=== PATIENT | male | born 1990 | race Caucasian/White ===

== ENCOUNTER 2017-05-18 15:55 | Emergency (ER) | payer SELFPAY ==
[2017-05-18 16:22] VITALS: BP 142/93; PULSE 81; RESP 18; TEMP 98.2; O2SAT 98
--- NOTE | 2017-05-18 16:39 | EDPHY ---
H & P Time Seen by Provider: 05/18/17 16:28 HPI/ROS: CHIEF COMPLAINT: Dental pain HISTORY OF PRESENT ILLNESS: 26-year-old male presents to the emergency department with dental pain. The patient has had several days of left upper tooth pain. He states that it has become increasingly more painful. No facial swelling. No reported trauma. He thinks that it is the wisdom tooth. He thinks that this also broke off a long time ago. He is new to [place] and does not have a dentist. ROS: Denies facial swelling, fever, chills, dysphagia Past Medical/Surgical History: Negative Social History: New to [place] from [place], [place] Smoking Status: Heavy smoker Physical Exam: On exam the patient has poor dentition. He has fractured the upper left wisdom tooth. There is no surrounding gum swelling or signs of infection. No facial bone tenderness. Neck is supple without lymphadenopathy. Neck is supple. Constitutional: Initial Vital Signs Temperature (C) 36.8 C 05/18/17 16:19 Heart Rate 81 05/18/17 16:19 Respiratory Rate 18 05/18/17 16:19 Blood Pressure 142/93 H 05/18/17 16:19 O2 Sat (%) 98 05/18/17 16:19 O2 Delivery Mode Room Air Allergies/Adverse Reactions: morphine Allergy (Intermediate, Verified 05/18/17 16:22) Hives Home Medications: Medication Instructions Recorded Penicillin V Potassium 500 mg PO TID #30 tablet 05/18/17 MDM/Departure - MDM ED Course/Re-evaluation: 26-year-old male with dental pain. I explained to the patient that narcotic medication would not be given to him. He will be treated with penicillin to prevent infection encouraged to use anti-inflammatory such as ibuprofen. He was given referral to dental aid and he was instructed to call them or may go to their office tomorrow and will be seen the same day. Patient was instructed to return sooner if he developed facial swelling, increasing pain or fever, or if he feels worse in any way. - Depart Disposition: Home, Routine, Self-Care Clinical Impression: Pain, dental Condition: Good Instructions: Toothache (ED) Additional Instructions: Penicillin as directed to prevent infection. Ibuprofen 600 mg every 8 hours as needed for pain. You need to follow up with a dentist as soon as possible. Prescriptions: Penicillin V Potassium 500 mg PO TID #30 tablet Referrals: [facility] [Outside] - As per Instructions Dental [facility] [Outside] - As per Instructions [facility] [Outside] - As per Instructions Dental [facility] [Outside] - As per Instructions [facility] [Outside] - As per Instructions (If you go to dental ate in [place] tomorrow, they will see you tomorrow.)
--- NOTE | 2017-05-18 17:24 | ASMTCMCOM ---
CM Note CM Note Notes: Patient provided Dental Aid resources. Patient and his girlfriend are new to [facility] from [place], [place]. Patient pleasant and appreciative of referral. Date Signed: 05/18/2017 05:24 PM Electronically Signed By:Sujata Vera RN
== END 2017-05-18 16:45 | disposition home or self-care (01) ==
DX: K08.89 Other specified disorders of teeth and supporting structures (principal); F17.200 Nicotine dependence, unspecified, uncomplicated